=== PATIENT | female | born 1930 | race Caucasian/White ===

== ENCOUNTER 2017-02-10 09:58 | Outpatient (CLI) | payer MEDICARE, OTHER | END 2017-02-10 09:59 | disposition short-term general hospital (02) | LOC: EMS 09:58 | PROVIDERS: ATTEND Surgery | DX: R11.2 Nausea with vomiting, unspecified (principal); R19.7 Diarrhea, unspecified; Z99.2 Dependence on renal dialysis | CPT/HCPCS: A0170; A0425; A0427 ==

== ENCOUNTER 2017-10-18 21:29 | Outpatient (CLI) | payer MEDICARE, OTHER | END 2017-10-18 21:30 | disposition EMS.NT | LOC: EMS 21:29 | PROVIDERS: ATTEND Surgery | DX: R53.81 Other malaise (principal) ==

== ENCOUNTER 2017-12-05 19:56 | Outpatient (CLI) | payer MEDICARE, OTHER | END 2017-12-05 19:57 | disposition short-term general hospital (02) | LOC: EMS 19:56 | PROVIDERS: ATTEND Surgery | DX: R07.9 Chest pain, unspecified (principal) | CPT/HCPCS: A0425; A0427 ==

== ENCOUNTER 2017-12-13 04:31 | Outpatient (CLI) | payer MEDICARE, OTHER | END 2017-12-13 04:32 | disposition short-term general hospital (02) | LOC: EMS 04:31 | PROVIDERS: ATTEND Surgery | DX: R06.02 Shortness of breath (principal); R07.9 Chest pain, unspecified | CPT/HCPCS: A0425; A0427 ==

== ENCOUNTER 2018-01-12 08:42 | Outpatient (CLI) | payer MEDICARE, OTHER | END 2018-01-12 08:43 | disposition short-term general hospital (02) | LOC: EMS 08:42 | PROVIDERS: ATTEND Surgery | DX: R53.1 Weakness (principal); R06.02 Shortness of breath; R42 Dizziness and giddiness | CPT/HCPCS: A0425; A0427 ==

== ENCOUNTER 2018-02-24 11:30 | Outpatient (CLI) | payer MEDICARE, OTHER | END 2018-02-24 11:31 | disposition short-term general hospital (02) | LOC: EMS 11:30 | PROVIDERS: ATTEND Surgery | DX: R07.9 Chest pain, unspecified (principal) | CPT/HCPCS: A0425; A0427 ==

== ENCOUNTER 2018-03-30 07:44 | Outpatient (CLI) | payer MEDICARE, OTHER | END 2018-03-30 07:45 | disposition short-term general hospital (02) | LOC: EMS 07:44 | PROVIDERS: ATTEND Surgery | DX: R07.89 Other chest pain (principal) | CPT/HCPCS: A0425; A0427 ==

== ENCOUNTER 2018-04-03 23:38 | Outpatient (CLI) | payer MEDICARE, OTHER | END 2018-04-03 23:39 | disposition short-term general hospital (02) | LOC: EMS 23:38 | PROVIDERS: ATTEND Surgery | DX: R07.9 Chest pain, unspecified (principal); R06.02 Shortness of breath | CPT/HCPCS: A0425; A0427 ==